=== PATIENT | male | born 1965 | race Caucasian/White ===

== ENCOUNTER 2023-12-20 09:54 | Inpatient (IN) | payer OTHER ==
[~2023-12-20] VITALS: Ht 193 cm; Wt 103.4 kg
[2023-12-20] MEDS ORDERED: DEXTROSE 50% WATER 50ML SYRINGE IV PRN ×2 (10:45→16:15)
[2023-12-20] MEDS: DEXTROSE 50% WATER 50ML SYRINGE IV NR (11:12)
[2023-12-20 11:18] LABS: HEMATOCRIT. 48.4 % (42.0-52.0); HEMOGLOBIN. 16.4 g/dL (14.0-18.0); MEAN CORPUSCULAR HEMOGLOBIN 34.3 pg (28.0-32.0); MEAN CORPUSCULAR VOLUME 100.9 fL (80.0-94.0); MEAN PLATELET VOLUME 9.9 fl (7.4-10.4); PLATELET 227 x1000/uL (130-400); RED BLOOD CELL COUNT 4.79 mill/uL (4.7-6.1); RED CELL DISTRIBUTION WIDTH 13.2 % (11.6-14.6); WHITE BLOOD COUNT 11.9 x1000/uL (4.5-11.0)
[2023-12-20 11:24] LABS: CHLORIDE 103 mEq/L (98-107); POTASSIUM 5.6 mEq/L (3.5-5.1); SODIUM 138 mEq/L (136-145)
[2023-12-20 11:25] LABS: CALCIUM 8.7 mg/dL (8.7-10.4); CARBON DIOXIDE 27 mEq/L (21-32)
[2023-12-20 11:30] LABS: CREATININE 0.7 mg/dL (0.6-1.3); GLUCOSE 116 mg/dL (70-105)
[2023-12-20 11:31] LABS: DIFFERENTIAL COMMENT 1; TROPONIN I HIGH SENSITIVITY 4 ng/L (3.0-53); UREA NITROGEN BLOOD 7 mg/dL (9-23)
[2023-12-20 12:02] LABS: ETHANOL BLOOD < 10 mg/dL (<10)
[2023-12-20 12:10] LABS: CLARITY URINE CLEAR (CLEAR); COLOR URINE YELLOW (YELLOW); GLUCOSE URINE TRACE (NEGATIVE); KETONES URINE NEGATIVE (NEGATIVE); LEUKOCYTE ESTERASE URINE NEGATIVE (NEGATIVE); NITRITE URINE NEGATIVE (NEGATIVE); OCCULT BLOOD URINE NEGATIVE (NEGATIVE); PH URINE 5.5 (4.5-8.0); PROTEIN URINE NEGATIVE (NEGATIVE); SPECIFIC GRAVITY URINE 1.011 (1.005-1.030); UROBILINOGEN URINE 0.2 E.U./dL (0.2-1.0)
[2023-12-20] MEDS: SODIUM CHLORIDE 0.9% 1000ML BAG (SEPSIS BOLUS) IV ONE (12:24)
[2023-12-20 12:32] LABS: *AMPHETAMINES SCREEN URINE NEGATIVE (NEGATIVE); *BARBITURATES SCREEN URINE NEGATIVE (NEGATIVE); *BENZODIAZEPINES SCREEN URINE NEGATIVE (NEGATIVE)
[2023-12-20 12:33] LABS: *COCAINE SCREEN URINE NEGATIVE (NEGATIVE); CANNABINOID URINE SCREEN NEGATIVE (NEGATIVE); ECSTASY MDMA SCREEN URINE NEGATIVE (NEGATIVE); METHADONE URINE SCREEN NEGATIVE (NEGATIVE); OPIATES URINE SCREEN NEGATIVE (NEGATIVE); PHENCYCLIDINE URINE SCREEN NEGATIVE (NEGATIVE)
[2023-12-20 12:36] LABS: PROTHROMBIN TIME 10.9 sec (9.6-11.0)
[2023-12-20 12:42] LABS: SQUAMOUS EPITHELIAL CELL URINE RARE /lpf (RARE/1+)
[2023-12-20 12:43] LABS: BACTERIA URINE 2+; RBC URINE NONE SEEN /hpf (0-2); WBC URINE 0-2 /hpf (0-2)
[2023-12-20] MEDS: VANCOMYCIN 1G PREMIX 200 ML IV ONE (12:44)
[2023-12-20] MEDS: PIPERACILLIN/TAZO 3.375G/50ML 50 ML IV ONE (12:44)
[2023-12-20 13:07] LABS: LACTIC ACID 3.2 mmol/L (0.4-2.0)
[2023-12-20 13:24] LABS: VITAMIN B12 SERUM 1496 pg/mL (211-911)
[2023-12-20 13:25] LABS: T4 FREE 0.89 ng/dL (0.89-1.76); THYROID STIMULATING HORMONE 1.11 uIU/mL (0.55-4.78)
[2023-12-20] MEDS: ACETAMINOPHEN 325MG TABLET PO STA (13:48)
[2023-12-20 13:55] LABS: PLATELET ESTIMATE NORMAL
[2023-12-20 15:53] VITALS: BP 121/71; PULSE 107; RESP 18; TEMP 36.5292
[2023-12-20 16:00] VITALS: BP 121/71; PULSE 106; RESP 18; TEMP 37.61412; O2SAT 97
[2023-12-20] MEDS ORDERED: ZOLPIDEM TARTRATE 5MG TABLET PO PRN (16:15)
[2023-12-20] MEDS ORDERED: NITROGLYCERIN 0.4MG TABLET SL SL PRN (16:15)
[2023-12-20] MEDS ORDERED: ACETAMINOPHEN 325MG TABLET PO PRN ×2 (16:15)
[2023-12-20] MEDS ORDERED: IPRATROPIUM/ALBUTEROL 0.5-3(2.5)MG/3ML NEB NEB PRN (16:15)
[2023-12-20] MEDS ORDERED: DOCUSATE SODIUM 100MG CAPSULE PO PRN (16:15)
[2023-12-20] MEDS ORDERED: ONDANSETRON HCL 4MG/2ML INJ IV PRN (16:15)
[2023-12-20] MEDS ORDERED: GUAIFENESIN 200MG/10ML SUGAR FREE UDC PO PRN (16:15)
[2023-12-20] MEDS ORDERED: MAGNESIUM/ALUMINUM HYDROXIDE/SIMETHICONE 30ML UDC PO PRN (16:15)
[2023-12-20] MEDS ORDERED: CLONIDINE 0.1MG TABLET PO PRN (16:15)
[2023-12-20] MEDS ORDERED: KETOROLAC 15MG/ML VIAL IV PRN (16:30)
[2023-12-20] MEDS: BLOOD SUGAR DIAGNOSTIC STRIP TEST SCH (17:40)
[2023-12-20] MEDS: INSULIN LISPRO 100 UNITS/ML SUBCUT SCH ×2 (18:10→18:30)
[2023-12-20 20:00] VITALS: BP 111/53; PULSE 94; RESP 20; TEMP 36.6696; O2SAT 98
[2023-12-20] MEDS ORDERED: INSLIS SUBCUT (20:07)
[2023-12-20] MEDS: LACTATED RINGERS 1,000 ML IV SCH (20:46)
[2023-12-20] MEDS: FAMOTIDINE 20MG TABLET PO SCH (20:55)
[2023-12-20] MEDS: SODIUM ZIRCONIUM CYCLOSILICATE 10GM/PACKET PO NR (20:55)
[2023-12-20] MEDS: VANCOMYCIN 1.5GM/250ML 250 ML IV NR (20:55)
[2023-12-20] MEDS: ASCORBIC ACID 500 MG TABLET PO SCH (20:55)
[2023-12-20] MEDS: ENOXAPARIN 30MG/0.3ML SYR SUBCUT SCH (20:56)
[2023-12-20] MEDS: INSULIN GLARGINE 100 UNITS/ML SUBCUT SCH (21:35)
[2023-12-20] MEDS: PIPERACILLIN/TAZO 3.375G/50ML 50 ML IV SCH (22:06)
[2023-12-21] VITALS: BP 113/67; PULSE 80; RESP 20; TEMP 36.89184; O2SAT 99
[2023-12-21 04:00] VITALS: BP 118/67; PULSE 84; RESP 20; TEMP 36.55848; O2SAT 99
[2023-12-21] MEDS: VANCOMYCIN 1G PREMIX 200 ML IV SCH (06:14)
[2023-12-21 06:33] LABS: BASOPHILS % 0.4 % (0.0-2.0); DIFFERENTIAL COMMENT 0; EOSINOPHILS % 0.4 % (0.0-5.0); HEMATOCRIT. 35.4 % (42.0-52.0); MEAN CORPUSCULAR HEMOGLOBIN 34.5 pg (28.0-32.0); MEAN CORPUSCULAR VOLUME 101.4 fL (80.0-94.0); MEAN PLATELET VOLUME 10.6 fl (7.4-10.4); MONOCYTES % 5.4 % (2.0-8.0); NEUTROPHILS % 85.8 % (40.0-76.0); PLATELET 157 x1000/uL (130-400); RED BLOOD CELL COUNT 3.49 mill/uL (4.7-6.1); RED CELL DISTRIBUTION WIDTH 13.2 % (11.6-14.6); WHITE BLOOD COUNT 15.4 x1000/uL (4.5-11.0)
[2023-12-21 06:53] LABS: CHLORIDE 104 mEq/L (98-107); POTASSIUM 4.2 mEq/L (3.5-5.1); SODIUM 135 mEq/L (136-145)
[2023-12-21 06:55] LABS: CALCIUM 7.9 mg/dL (8.7-10.4); CARBON DIOXIDE 26 mEq/L (21-32)
[2023-12-21 07:00] LABS: CREATININE 0.6 mg/dL (0.6-1.3); GLUCOSE 207 mg/dL (70-105); PROTEIN TOTAL 4.8 g/dL (6.0-8.3)
[2023-12-21 07:01] LABS: ALANINE AMINOTRANSFERASE 23 IU/L (10-49); TRIGLYCERIDE 50 mg/dL (0-150); UREA NITROGEN BLOOD 7 mg/dL (9-23)
[2023-12-21 07:02] LABS: ALBUMIN 2.8 g/dL (3.2-4.8); ASPARTATE AMINOTRANSFERASE 34 IU/L (<34); CHOLESTEROL 135 mg/dL (<200); HDL CHOLESTEROL 87 mg/dL (>55); LDL CHOLESTEROL 23 mg/dL (5-100)
[2023-12-21 07:03] LABS: PHOSPHORUS 2.9 mg/dL (2.5-4.9)
[2023-12-21 08:00] VITALS: BP 130/70; PULSE 80; RESP 18; TEMP 36.28068; O2SAT 100
[2023-12-21] MEDS: ZINC SULFATE 220 MG ( 50 ) CAPSULE PO SCH (08:42)
[2023-12-21 12:00] VITALS: BP 127/71; PULSE 77; RESP 18; TEMP 36.61404; O2SAT 100
[2023-12-21] MEDS: CHLORHEXIDINE GLUCONATE 4% EXTERNAL USE TOP SCH (12:40)
[2023-12-21 16:00] VITALS: BP 118/68; PULSE 71; RESP 20; TEMP 36.6696; O2SAT 100
[2023-12-21 20:00] VITALS: BP 153/78; PULSE 74; RESP 20; TEMP 36.61404; O2SAT 100
[2023-12-22] VITALS: BP 131/73; PULSE 83; RESP 20; TEMP 36.50292; O2SAT 98
[2023-12-22 04:00] VITALS: BP 143/77; PULSE 62; RESP 20; TEMP 36.28068; O2SAT 98
[2023-12-22] MEDS ORDERED: LIDOCAINE HCL/EPINEPHRINE 1%-EPI 1:100,000 20ML VIAL MC NR (08:00)
[2023-12-22 08:22] VITALS: BP 147/84; PULSE 68; RESP 20; TEMP 36.3918; O2SAT 99
[2023-12-22 12:00] VITALS: BP 147/80; PULSE 65; RESP 20; TEMP 36.44736; O2SAT 97
[2023-12-22 16:00] VITALS: BP 142/76; PULSE 62; RESP 20; TEMP 36.05844; O2SAT 97
[2023-12-22] MEDS: VANCOMYCIN 1.25GM PMX (XELLIA) 250 ML IV SCH (17:47)
[2023-12-22 20:00] VITALS: BP 163/92; PULSE 69; RESP 18; TEMP 36.6696; O2SAT 100
[2023-12-23] VITALS: BP 133/67; PULSE 65; RESP 18; TEMP 36.16956; O2SAT 99
[2023-12-23 04:00] VITALS: BP 143/77; PULSE 60; RESP 18; TEMP 36.89184; O2SAT 92
[2023-12-23 08:00] VITALS: BP 144/78; PULSE 74; RESP 16; TEMP 36.16956; O2SAT 94
[2023-12-23] MEDS ORDERED: AMOX1TAB16 MT ×2 (08:44→09:35)
[2023-12-23 09:38] VITALS: BP 144/78; PULSE 74; TEMP 97.2; O2SAT 94
== END 2023-12-23 10:05 | disposition home or self-care (01) | DRG 853 ==
LOC: ER 09:54 → 7WST 13:55 → EDBEDREQTM 13:58 → EDBEDREQ 13:58
PROVIDERS: ADMIT Internal Medicine; ATTEND Internal Medicine
PROC: 0KBW0ZZ Excision of Left Foot Muscle, Open Approach (ICD-10-PCS; principal; 2023-12-22)
DX: A41.9 Sepsis, unspecified organism (principal); G92.8 Other toxic encephalopathy; L03.116 Cellulitis of left lower limb; E87.20 Acidosis, unspecified; E11.40 Type 2 diabetes mellitus with diabetic neuropathy, unspecified; E11.621 Type 2 diabetes mellitus with foot ulcer; E11.649 Type 2 diabetes mellitus with hypoglycemia without coma; E87.5 Hyperkalemia; Z96.41 Presence of insulin pump (external) (internal); L97.522 Non-pressure chronic ulcer of other part of left foot with fat layer exposed; Z89.432 Acquired absence of left foot; Z79.4 Long term (current) use of insulin
CPT/HCPCS: 36415; 71045; 73630; 76881; 80048; 80053; 80061; 80202; 80305; 80320; 81003; 82607; 82962; 83036; 83605; 83735; 84100; 84145; 84439; 84443; 84484; 85025; 87070; 87077; 87186; 93005; 93306; 93970; 99285; J1650; J1815; J2543; J3370; J3490; J7030; J7120; G0480